=== PATIENT | female | born 1995 | race Caucasian/White ===

== ENCOUNTER 2018-01-25 08:40 | Emergency (ER) | payer BC ==
[2018-01-25 08:55] VITALS: BP 117/72
[2018-01-25] MEDS ORDERED: Fluorescein Sodium TOPICAL* 1 MG TEST STRIP OPHTHALMIC ONE (09:03)
[2018-01-25] MEDS ORDERED: Tetracaine 0.5% OPTH.SOL 4 ML* 1 DROP BTL ONE (09:08)
--- NOTE | 2018-01-25 09:21 | ED ---
Throat Pain/Nasal Congestion - HPI Summary HPI Summary: pain and foreign body sensation left eye for the last 12 hours , doesnt wear contact lens, no photophobia - History of Current Complaint Chief Complaint: UCEye Time Seen by Provider: 01/25/18 08:59 Hx Obtained From: Patient Onset/Duration: Sudden Onset Severity: Mild Associated Signs And Symptoms: Positive: Negative - Epiglottits Risk Factors Epiglottis Risk Factors: Negative - Allergies/Home Medications Allergies/Adverse Reactions: Allergies Allergy/AdvReac Type Severity Reaction Status Date / Time phenazopyridine AdvReac Dizziness Verified 01/25/18 08:57 [From Pyridium] Home Medications: Home Medications Ibuprofen TAB* [Advil TAB*] 400 mg PO Q6H PRN 01/25/18 [History Confirmed ] PMH/Surg Hx/FS Hx/Imm Hx Previously Healthy: Yes Respiratory History: Reports: Hx Asthma - Surgical History Surgery Procedure, Year, and Place: t/a 2009, and ear tubes as child Infectious Disease History: No Infectious Disease History: Denies: Traveled Outside the [place] in Last 30 Days - Social History Alcohol Use: None Substance Use Type: Reports: None Smoking Status (MU): Never Smoked Tobacco Review of Systems Constitutional: Negative Positive: Other - foreign body sensation ENT: Negative Cardiovascular: Negative Respiratory: Negative Gastrointestinal: Negative Genitourinary: Negative Musculoskeletal: Negative Skin: Negative Neurological: Negative All Other Systems Reviewed And Are Negative: Yes Physical Exam Triage Information Reviewed: Yes Vital Signs On Initial Exam: Initial Vitals Temp Pulse Resp BP Pulse Ox 36.8 C 75 14 117/72 100 01/25/18 08:48 01/25/18 08:48 01/25/18 08:48 01/25/18 08:48 01/25/18 08:48 Vital Signs Reviewed: Yes Appearance: Positive: Well-Appearing Skin: Positive: Warm Head/Face: Positive: Normal Head/Face Inspection Eyes: Positive: Other: - magnified view of left eye shows no foreign body, viewed under upper and lower lids fluorescein stain negative for corneal abrasion , perrla, eoms full, fundoscopic exam normal ENT: Positive: Normal ENT inspection Neck: Positive: Supple Respiratory/Lung Sounds: Positive: Clear to Auscultation Cardiovascular: Positive: Normal Abdomen Description: Positive: Nontender Bowel Sounds: Positive: Present Musculoskeletal: Positive: Normal Neurological: Positive: Normal Diagnostics - Vital Signs Vital Signs Temp Pulse Resp BP Pulse Ox 01/25/18 08:48 36.8 C 75 14 117/72 100 - Laboratory Lab Statement: Any lab studies that have been ordered have been reviewed, and results considered in the medical decision making process. EENT Course/Dx - Diagnoses Provider Diagnoses: Sensation of foreign body in eye Discharge - Sign-Out/Discharge Documenting (check all that apply): Patient Departure All imaging exams completed and their final reports reviewed: No - Discharge Plan Condition: Good Disposition: HOME Patient Education Materials: Eye Foreign Body (ED) Referrals: Power ARMSTRONG,Sajan [Primary Care Provider] - Nj Chavez MD [Medical Doctor] - Additional Instructions: If symptoms persist then see opthalmologist - Billing Disposition and Condition Condition: GOOD Disposition: Home
[2018-01-25] MEDS ORDERED: Tetracaine 0.5% OPTH.SOL 4 ML* 1 DROP BTL LEFT EYE SCH (09:30)
[2018-01-25] MEDS ORDERED: Tetracaine 0.5% OPTH.SOL 15ML* BTL LEFT EYE SCH (10:00)
--- NOTE | 2018-01-25 10:22 | UC ---
Course/Dx - Diagnoses Provider Diagnoses: Sensation of foreign body in eye Discharge - Sign-Out/Discharge Documenting (check all that apply): Post-Discharge Follow Up All imaging exams completed and their final reports reviewed: No Studies - Discharge Plan Condition: Good Disposition: HOME Patient Education Materials: Eye Foreign Body (ED) Referrals: Greg Grant MD [Medical Doctor] - Power ARMSTRONG,Sajan [Primary Care Provider] - Additional Instructions: If symptoms persist then see opthalmologist - Billing Disposition and Condition Condition: GOOD Disposition: Home
== END 2018-01-25 10:07 | disposition home or self-care (01) ==
LOC: UCCORT 08:40
DX: T15.92XA Foreign body on external eye, part unspecified, left eye, initial encounter (principal); Z88.6 Allergy status to analgesic agent
CPT/HCPCS: 99212; A9270-GY; G0463

== ENCOUNTER 2018-08-17 13:00 | Emergency (ER) | payer BC ==
[2018-08-17 14:31] VITALS: BP 124/75
--- NOTE | 2018-08-17 14:39 | UC ---
Complaint Female HPI - HPI Summary HPI Summary: 22 y/o female presents to the urgent care c/o urinary frequency and burning and foul odor to her urine since yesterday. She also states having pelvic pressure. Pt has Hx of UTI in the past. Pt is allergic to sulfa and Pyridium PO. Pt has been drinking a lot of water. Pt denies fever, hematuria, flank pain , abdominal pain, vaginal discharge, SOB, chest pain, N/V/D or Hx of STD's. LMP: 07/27/2018 on OCP. - History Of Current Complaint Chief Complaint: UCGI Stated Complaint: URINARY COMPLAINT Time Seen by Provider: 08/17/18 14:28 Hx Obtained From: Patient Hx Last Menstrual Period: 07/27/18 ?: No Onset/Duration: Gradual Onset, Lasting Days - 1 day, Still Present, Worse Since - today Timing: Intermittent, Lasting Seconds Severity Initially: Mild Severity Currently: Mild Pain Intensity: 4 Pain Scale Used: 0-10 Numeric Character: Burning Aggravating Factor(s): Urination Alleviating Factor(s): Nothing Associated Signs And Symptoms: Negative: Fever, Back Pain, Vaginal Discharge, Nausea, Vomiting(# Of Episodes =), Genital Blisters Related Hx: Similar Episode/Dx as: - UTI - Risk Factors Ectopic Risk Factor: Negative - Allergies/Home Medications Allergies/Adverse Reactions: Allergies Allergy/AdvReac Type Severity Reaction Status Date / Time sulfamethoxazole Allergy Hives Verified 08/17/18 14:32 [From Bactrim] trimethoprim [From Bactrim] Allergy Hives Verified 08/17/18 14:32 phenazopyridine AdvReac Dizziness Verified 08/17/18 14:32 [From Pyridium] Home Medications: Home Medications Ethinyl Estradiol/Drospirenone [Liz 28 Tablet] 1 each PO DAILY 08/17/18 [ History Confirmed 08/17/18] PMH/Surg Hx/FS Hx/Imm Hx Previously Healthy: Yes Respiratory History: Asthma - Surgical History Surgical History: Yes Surgery Procedure, Year, and Place: t/a 2009, and ear tubes as child - Family History Known Family History: Positive: None - Pt denies FMHX - Social History Occupation: Employed Full-time Lives: With Family Alcohol Use: Occasionally Substance Use Type: None Smoking Status (MU): Never Smoked Tobacco - Immunization History Vaccination Up to Date: Yes Review of Systems All Other Systems Reviewed And Are Negative: Yes Constitutional: Positive: Negative Skin: Positive: Negative Eyes: Positive: Negative ENT: Positive: Negative Respiratory: Positive: Negative Cardiovascular: Positive: Negative Gastrointestinal: Positive: Negative Genitourinary: Positive: Dysuria, Frequency, Urgency. Negative: Vaginal/Penile Discharge Motor: Positive: Negative Neurovascular: Positive: Negative Musculoskeletal: Positive: Negative Neurological: Positive: Negative Psychological: Positive: Negative Is Patient Immunocompromised?: No Physical Exam - Summary Physical Exam Summary: VITAL SIGNS: Reviewed. GENERAL: Patient is a well developed and nourished female who is sitting comfortable in the examining table. Patient is not in any acute respiratory distress. HEAD AND FACE: No signs of trauma. No ecchymosis, hematomas or skull depressions. No sinus tenderness. EYES: PERRLA, EOMI x 2, No injected conjunctiva, clear watery eyes, no nystagmus. No photophobia. EARS: Hearing grossly intact. Ear canals and tympanic membranes are within normal limits. MOUTH: pharynx with no erythema, no exudates,no palatal petechiae. no B/L tonsillar enlargement Uvula in midline. NECK: Supple, trachea is midline, no lymphadenopathy, no JVD, no carotid bruit, no c-spine tenderness, neck with full ROM. CHEST: Symmetric, no tenderness at palpation LUNGS: Clear to auscultation bilaterally. No wheezing or crackles. CVS: Regular rate and rhythm, S1 and S2 present, no murmurs or gallops appreciated. ABDOMEN: Soft, non-tender. No signs of distention. No rebound no guarding, and no masses palpated. Bowel sounds are normal. BACK:no scoliosis or lesions, non tender to palpation, No B/L CVA tenderness EXTREMITIES: FROM in all major joints, no edema, no cyanosis or clubbing. NEURO: Alert and oriented x 3. No acute neurological deficits. Speech is normal and follows commands. SKIN: Dry and warm Triage Information Reviewed: Yes Vital Signs: Initial Vital Signs Temp 97.9 F 08/17/18 14:28 Pulse 80 08/17/18 14:28 Resp 16 08/17/18 14:28 BP 124/75 08/17/18 14:28 Pulse Ox 100 08/17/18 14:28 Complaint Female Dx - Course Course Of Treatment: 22 y/o female presents to the urgent care c/o urinary frequency and burning and foul odor to her urine since yesterday. She also states having pelvic pressure. Pt has Hx of UTI in the past. Pt is allergic to sulfa and Pyridium PO. Pt has been drinking a lot of water. Pt denies fever, hematuria, flank pain , abdominal pain, vaginal discharge, SOB, chest pain, N/V/D or Hx of STD's. LMP: 07/27/2018 on OCP. Hx obtained. PE: WNL. UA results: Blood 2+, Leukoesterase 3+. blood:3+, Nitrates positive. Pt is Sulfa and Pyridium allergic. Pt Rx Nitrofurantoin 100mg PO x 7 days. Advised to increase fluid intake. Urine sent for culture if any abnormality Pt will be notified for further treatment. Pt advised If symptoms do not improve to return to the urgent care or f/u with PCP in 3 days for further management. Pt understood and agreed. Left the clinic ambulating. - Differential Dx/Diagnosis Differential Diagnosis/HQI/PQRI: Cervicitis, Pelvic Inflammatory Disease, Renal Colic, Ureteral Stone, Urinary Tract Infection Provider Diagnosis: UTI (urinary tract infection) Discharge - Sign-Out/Discharge Documenting (check all that apply): Patient Departure - d/c home All imaging exams completed and their final reports reviewed: No Studies - Discharge Plan Condition: Stable Disposition: HOME Prescriptions: Nitrofurantoin Macrocrystals* [Macrodantin 100 mg*] 100 mg PO BID #14 cap Patient Education Materials: Urinary Tract Infection in Women (ED) Referrals: [facility] [place] [facility] [Outside] - 3 Days Additional Instructions: 1- Please take Nitrofuratoin 100mg PO x 7 days to alleviate urinary symptoms. Increase increase fluid intake. drink cranberry juice. 2-Urine sent for culture if any abnormality, you will be notified for further treatment. 3-If symptoms do not improve please return to the urgent care or f/u with PCP in 3 days for further management. - Billing Disposition and Condition Condition: STABLE Disposition: Home
== END 2018-08-17 15:02 | disposition home or self-care (01) ==
LOC: UCCORT 13:00
DX: N39.0 Urinary tract infection, site not specified (principal); J45.909 Unspecified asthma, uncomplicated; Z88.2 Allergy status to sulfonamides; Z88.8 Allergy status to other drugs, medicaments and biological substances
CPT/HCPCS: 81003; 87077; 87086; 87186; 99212; G0463